=== PATIENT | male | born 1945 | race Two or more races ===

== ENCOUNTER 2023-09-11 19:48 | Inpatient (IN) | payer OTHER, MEDICAID ==
[~2023-09-11] VITALS: Ht 167.6 cm; Wt 63.0 kg
[2023-09-11 20:25] VITALS: PULSE 83; RESP 18; O2SAT 98
[2023-09-11 20:35] LABS: Basophils # (auto) 0.1 10 ^3/uL (0-0.2); Basophils % (auto) 0.6 % (0.0-2.0); Eosinophils # (auto) 0.2 10 ^3/uL (0-0.8); Eosinophils % (auto) 2.7 % (0.0-7.0); Hematocrit 46.9 % (41.0-53.0); Hemoglobin 16.1 g/dL (13.5-17.5); Lymphocytes % (auto) 12.2 % (10.0-50.0); Mean Corpuscular Hemoglobin 32.6 pg (28.0-32.0); Mean Corpuscular Hgb Conc. 34.3 g/dL (32.0-36.0); Mean Corpuscular Volume 95.1 fL (80.0-100.0); Monocytes % (auto) 12.6 % (0.0-12.0); Neutrophils % (auto) 71.9 % (37.0-80.0); Nucleated Red Blood Cells % 0.1 %; Red Blood Cells 4.93 10^6/uL (4.5-5.90); Red Cell Distribution Width 15.6 % (11.8-14.3); White Blood Cell 8.3 10^3/uL (4.4-10.8)
[2023-09-11 20:40] LABS: Chloride 106 mmol/L (98-107); Sodium 137 mmol/L (136-145)
[2023-09-11 20:41] LABS: Anion Gap 6 (5-15); Calcium 9.1 mg/dL (8.5-10.1); Carbon Dioxide 25 mmol/L (20-30)
[2023-09-11 20:46] LABS: BUN/Creatinine Ratio 9.1 (10.0-20.0); Blood Urea Nitrogen 14 mg/dL (9-23); Glucose 111 mg/dL (74-106)
[2023-09-11] MEDS: ASPirin 325 MG TAB PO ONE (21:30)
[2023-09-11] MEDS: SODIUM CHLORIDE 0.9% 500 ML IV ONE (22:16)
[2023-09-12] MEDS: SODIUM CHLORIDE 0.9% 1,000 ML IV ONE (00:13)
[2023-09-12] MEDS ORDERED: DOCUSATE SOD 100 MG CAP PO PRN (01:45)
[2023-09-12] MEDS ORDERED: ACETAMINOPHEN 325 MG TAB PO PRN (01:45)
[2023-09-12] MEDS ORDERED: HYDROcodone-ACET 5/325MG TAB PO PRN (01:45)
[2023-09-12] MEDS ORDERED: ONDANSETRON HCL 4 MG/2 ML VIAL IV PRN (01:45)
[2023-09-12] MEDS ORDERED: MORPHINE SULFATE INJ 2 MG/ml SYRG IV PRN (05:15)
[2023-09-12] MEDS ORDERED: NITROGLYCERIN 0.4 MG SL TAB SL PRN (05:15)
[2023-09-12 05:59] LABS: Basophils # (auto) 0.1 10 ^3/uL (0-0.2); Eosinophils # (auto) 0.2 10 ^3/uL (0-0.8); Eosinophils % (auto) 3.3 % (0.0-7.0); Hematocrit 41.7 % (41.0-53.0); Hemoglobin 14.5 g/dL (13.5-17.5); Lymphocytes # (auto) 1.2 10 ^3/uL (0.4-5.4); Lymphocytes % (auto) 17.8 % (10.0-50.0); Mean Corpuscular Hemoglobin 32.7 pg (28.0-32.0); Mean Corpuscular Hgb Conc. 34.8 g/dL (32.0-36.0); Monocytes # (auto) 0.8 10 ^3/uL (0-1.3); Monocytes % (auto) 12.6 % (0.0-12.0); Neutrophils # (auto) 4.3 10 ^3/uL (1.6-8.6); Neutrophils % (auto) 65.3 % (37.0-80.0); Nucleated Red Blood Cells % 0.1 %; Red Blood Cells 4.44 10^6/uL (4.5-5.90); Red Cell Distribution Width 15.3 % (11.8-14.3); White Blood Cell 6.6 10^3/uL (4.4-10.8)
[2023-09-12] MEDS: SODIUM CHLOR 0.9% PF (SALINE LOCK) 10ML VIAL/SYR IV SCH (06:04)
[2023-09-12 06:15] LABS: Alanine Aminotransferase 57 U/L (7-40); Albumin 2.9 g/dL (3.2-4.8); Alkaline Phosphatase 178 U/L (46-116); Anion Gap 7 (5-15); Aspartate Aminotransferase 68 U/L (13-40); BUN/Creatinine Ratio 14.9 (10.0-20.0); Blood Urea Nitrogen 15 mg/dL (9-23); Calcium 8.6 mg/dL (8.5-10.1); Carbon Dioxide 23 mmol/L (20-30); Chloride 110 mmol/L (98-107); Glucose 99 mg/dL (74-106); Potassium 3.9 mmol/L (3.5-5.1); Sodium 140 mmol/L (136-145); Total Protein 6.1 g/dL (5.7-8.2)
[2023-09-12 07:25] VITALS: PULSE 88; RESP 18; O2SAT 97
[2023-09-12] MEDS: CARVEDILOL 3.125 MG TAB PO SCH (10:00)
[2023-09-12] MEDS: FUROSEMIDE 20 MG/2 ML VIAL IV SCH (10:00)
[2023-09-12] MEDS: ASPirin 81 mg TAB PO SCH (10:16)
[2023-09-12] MEDS: FAMOTIDINE (10MG/ML) 2ML VL IV SCH (10:16)
[2023-09-12 12:05] LABS: Urine Bacteria None Seen /hpf (None Seen)
[2023-09-12 12:11] LABS: Triglycerides 101 mg/dL (< 150)
[2023-09-12 12:12] LABS: LDL Cholesterol 66 mg/dL (< 100)
[2023-09-12 12:13] LABS: Cholesterol 106 mg/dL (< 200); HDL Cholesterol 21 mg/dL (40-59)
[2023-09-12 12:19] LABS: Urine Blood Negative /uL (Negative); Urine Clarity Clear (Clear); Urine Color Yellow (Yellow); Urine Hyaline Cast FEW /lpf (0 - 2); Urine Protein, UAD Negative (Negative); Urine Specific Gravity 1.015 (1.001-1.035); Urine Urobilinogen 4 mg/dL (Negative); Urine WBC 2 /hpf (0 - 3); Urine pH 5.5 (5.0-9.0)
[2023-09-12] MEDS: FUROSEMIDE 20 MG TAB PO ONE (12:44)
[2023-09-12 20:00] VITALS: PULSE 97; RESP 17; O2SAT 95
[2023-09-12] MEDS: ATORVASTATIN 20 MG TAB PO SCH (22:34)
[2023-09-13 06:11] LABS: Basophils # (auto) 0.1 10 ^3/uL (0-0.2); Basophils % (auto) 1.1 % (0.0-2.0); Eosinophils # (auto) 0.3 10 ^3/uL (0-0.8); Hemoglobin 15.4 g/dL (13.5-17.5); Lymphocytes % (auto) 15.4 % (10.0-50.0); Mean Corpuscular Hemoglobin 32.8 pg (28.0-32.0); Mean Corpuscular Volume 93.7 fL (80.0-100.0); Monocytes # (auto) 0.9 10 ^3/uL (0-1.3); Monocytes % (auto) 13.7 % (0.0-12.0); Neutrophils # (auto) 4.3 10 ^3/uL (1.6-8.6); Neutrophils % (auto) 64.8 % (37.0-80.0); Nucleated Red Blood Cells % 0.1 %; Red Cell Distribution Width 15.4 % (11.8-14.3); White Blood Cell 6.6 10^3/uL (4.4-10.8)
[2023-09-13 06:35] LABS: Alanine Aminotransferase 57 U/L (7-40); Albumin 3.1 g/dL (3.2-4.8); Alkaline Phosphatase 176 U/L (46-116); Anion Gap 6 (5-15); Aspartate Aminotransferase 78 U/L (13-40); BUN/Creatinine Ratio 15.7 (10.0-20.0); Blood Urea Nitrogen 14 mg/dL (9-23); Carbon Dioxide 24 mmol/L (20-30); Chloride 108 mmol/L (98-107); Glucose 96 mg/dL (74-106); Potassium 3.9 mmol/L (3.5-5.1); Sodium 138 mmol/L (136-145)
[2023-09-13 06:36] LABS: Bilirubin, Total 1.3 mg/dL (0.2-1.0); Total Protein 6.6 g/dL (5.7-8.2)
[2023-09-13 07:54] VITALS: PULSE 89; RESP 20; O2SAT 95
[2023-09-13] MEDS: SPIRONOLACTONE 25 MG TAB PO SCH (10:00)
[2023-09-13] MEDS: EMPAGLIFLOZIN 10 MG TAB PO SCH (10:00)
[2023-09-13] MEDS: FUROSEMIDE 20 MG TAB PO SCH (10:00)
[2023-09-13 10:57] VITALS: BP 110/69; PULSE 86; RESP 18; TEMP 97.7; O2SAT 96
[2023-09-13 11:23] LABS: Folate (Folic Acid) 15.93 ng/mL (>5.38)
[2023-09-13] MEDS ORDERED: METO-289 PO (15:56)
[2023-09-13] MEDS ORDERED: ATOR10TA PO (15:56)
[2023-09-13] MEDS ORDERED: LISI-275 PO (15:56)
[2023-09-13] MEDS ORDERED: ERGO1CAP12 PO (15:56)
[2023-09-13] MEDS ORDERED: BUME0.5T4 PO (15:56)
[2023-09-13] MEDS ORDERED: RIV20T PO (15:56)
[2023-09-13] MEDS ORDERED: SPIR25TA8 PO (15:56)
[2023-09-13] MEDS ORDERED: SACU1TAB7 PO (15:56)
== END 2023-09-13 11:12 | disposition short-term general hospital (02) | DRG 280 ==
LOC: EDBD 19:48 → EDSEX 19:48 → ER 19:48 → TELE 09-12 05:06
PROVIDERS: ADMIT Internal Medicine; ATTEND Emergency Medicine
DX: I11.0 Hypertensive heart disease with heart failure (principal); I50.41 Acute combined systolic (congestive) and diastolic (congestive) heart failure; I21.A1 Myocardial infarction type 2; N17.0 Acute kidney failure with tubular necrosis; I95.9 Hypotension, unspecified; R00.0 Tachycardia, unspecified; I49.9 Cardiac arrhythmia, unspecified; M10.9 Gout, unspecified; E11.9 Type 2 diabetes mellitus without complications; Z86.73 Personal history of transient ischemic attack (TIA), and cerebral infarction without residual deficits; Z88.0 Allergy status to penicillin; Z79.899 Other long term (current) drug therapy
CPT/HCPCS: 36415; 70450; 71045; 80048; 80053; 80061; 81001; 82306; 82607; 82746; 83036; 83880; 84439; 84443; 84484; 85025; 93005; 93306; 93886; 96360; 96361; 99291; G0378; J3490

== ENCOUNTER 2023-10-04 16:59 | Inpatient (IN) | payer OTHER, MEDICAID ==
[~2023-10-04] VITALS: Ht 167.6 cm; Wt 59.0 kg
[~2023-10-04 16:59] MED LIST: ATOR10TA PO; BUME0.5T4 PO; ERGO1CAP12 PO; LISI-275 PO; METO-289 PO; RIV20T PO; SACU1TAB7 PO; SPIR25TA8 PO
[2023-10-04] MEDS: SODIUM CHLORIDE 0.9% 500 ML IV ONE (18:36)
[2023-10-04 19:30] VITALS: PULSE 65; RESP 12; O2SAT 97
[2023-10-04 19:30] LABS: Basophils # (auto) 0.1 10 ^3/uL (0-0.2); Basophils % (auto) 0.9 % (0.0-2.0); Eosinophils # (auto) 0.2 10 ^3/uL (0-0.8); Eosinophils % (auto) 3.4 % (0.0-7.0); Hematocrit 50.7 % (41.0-53.0); Hemoglobin 17.2 g/dL (13.5-17.5); Lymphocytes # (auto) 1.5 10 ^3/uL (0.4-5.4); Lymphocytes % (auto) 21.1 % (10.0-50.0); Mean Corpuscular Hemoglobin 32.1 pg (28.0-32.0); Mean Corpuscular Hgb Conc. 33.8 g/dL (32.0-36.0); Mean Corpuscular Volume 95.1 fL (80.0-100.0); Monocytes % (auto) 14.4 % (0.0-12.0); Neutrophils # (auto) 4.2 10 ^3/uL (1.6-8.6); Neutrophils % (auto) 60.2 % (37.0-80.0); Nucleated Red Blood Cells % 0.2 %; Red Blood Cells 5.34 10^6/uL (4.5-5.90); Red Cell Distribution Width 14.6 % (11.8-14.3); White Blood Cell 6.9 10^3/uL (4.4-10.8)
[2023-10-04 19:38] LABS: Chloride 105 mmol/L (98-107); Potassium 4.8 mmol/L (3.5-5.1); Sodium 134 mmol/L (136-145)
[2023-10-04 19:39] LABS: Anion Gap 11 (5-15); Calcium 9.7 mg/dL (8.7-10.4); Carbon Dioxide 18 mmol/L (20-30)
[2023-10-04 19:44] LABS: BUN/Creatinine Ratio 12.7 (10.0-20.0); Blood Urea Nitrogen 27 mg/dL (9-23); Glucose 99 mg/dL (74-106)
[2023-10-04 19:45] LABS: Magnesium 1.9 mg/dL (1.6-2.6)
[2023-10-04 20:48] LABS: Urine Bacteria None Seen /hpf (None Seen)
[2023-10-04 20:56] LABS: Urine Blood Negative /uL (Negative); Urine Clarity Clear (Clear); Urine Color Yellow (Yellow); Urine Hyaline Cast MANY /lpf (0 - 2); Urine Protein, UAD Negative (Negative); Urine Specific Gravity 1.009 (1.001-1.035); Urine Urobilinogen Normal (Negative); Urine WBC 1 /hpf (0 - 3)
[2023-10-04] MEDS ORDERED: MORPHINE SULFATE INJ 2 MG/ml SYRG IV PRN (21:15)
[2023-10-04] MEDS ORDERED: ONDANSETRON HCL 4 MG/2 ML VIAL IV PRN (21:15)
[2023-10-04] MEDS ORDERED: NITROGLYCERIN 0.4 MG SL TAB SL PRN (21:15)
[2023-10-04] MEDS ORDERED: ACETAMINOPHEN 325 MG TAB PO PRN (21:15)
[2023-10-04] MEDS: ATORVASTATIN 20 MG TAB PO SCH (21:53)
[2023-10-04] MEDS: MIDODRINE HCL 10 MG TAB PO SCH (21:53)
[2023-10-04 22:48] VITALS: BP 90/58; PULSE 62; RESP 16; TEMP 97.9; O2SAT 99
[2023-10-05] VITALS (10 sets, daily range): BP systolic 75–96; BP diastolic 45–69; PULSE 61–74; RESP 16–20; TEMP 97.4–98.1; O2SAT 95–98
[2023-10-05] MEDS: BUMETANIDE 1 MG TAB PO SCH (05:49)
[2023-10-05 07:08] LABS: Chloride 106 mmol/L (98-107); Potassium 4.2 mmol/L (3.5-5.1); Sodium 138 mmol/L (136-145)
[2023-10-05 07:09] LABS: Anion Gap 14 (5-15); Calcium 9.3 mg/dL (8.7-10.4); Carbon Dioxide 18 mmol/L (20-30)
[2023-10-05 07:14] LABS: BUN/Creatinine Ratio 21.1 (10.0-20.0); Blood Urea Nitrogen 31 mg/dL (9-23); Glucose 80 mg/dL (74-106)
[2023-10-05 07:42] LABS: Basophils # (auto) 0.1 10 ^3/uL (0-0.2); Eosinophils # (auto) 0.3 10 ^3/uL (0-0.8); Eosinophils % (auto) 5.1 % (0.0-7.0); Hematocrit 46.5 % (41.0-53.0); Hemoglobin 16.1 g/dL (13.5-17.5); Lymphocytes # (auto) 1.8 10 ^3/uL (0.4-5.4); Lymphocytes % (auto) 30.6 % (10.0-50.0); Mean Corpuscular Hemoglobin 32.6 pg (28.0-32.0); Mean Corpuscular Hgb Conc. 34.6 g/dL (32.0-36.0); Mean Corpuscular Volume 94.4 fL (80.0-100.0); Monocytes # (auto) 0.7 10 ^3/uL (0-1.3); Monocytes % (auto) 12.9 % (0.0-12.0); Neutrophils # (auto) 2.9 10 ^3/uL (1.6-8.6); Neutrophils % (auto) 50.4 % (37.0-80.0); Nucleated Red Blood Cells % 0.5 %; Red Blood Cells 4.92 10^6/uL (4.5-5.90); Red Cell Distribution Width 14.4 % (11.8-14.3); White Blood Cell 5.7 10^3/uL (4.4-10.8)
[2023-10-05] MEDS: SPIRONOLACTONE 25 MG TAB PO SCH (09:52)
[2023-10-05 12:55] LABS: Magnesium 1.6 mg/dL (1.6-2.6)
[2023-10-05 12:57] LABS: Phosphorus 4.2 mg/dL (2.4-5.1)
[2023-10-05 13:57] LABS: Amphetamine Screen, Urine Neg (NEGATIVE); Barbiturate Scree,Urine Neg (NEGATIVE); Benzodiazephine Screen, Urine Neg (NEGATIVE); Cocaine Screen, Urine Neg (NEGATIVE)
[2023-10-05 13:58] LABS: Cannabinoid Screen, Urine Neg (NEGATIVE); Opiate Scree,Urine Neg (NEGATIVE); Phencyclidine Screen, Urine Neg (NEGATIVE)
[2023-10-05] MEDS: CYANOCOBALAMIN 500 MCG TAB PO ONE (14:06)
[2023-10-05] MEDS: ERGOCALCIFEROL 50,000 UNIT(1.25MG) CAP PO SCH (14:06)
[2023-10-05 15:17] LABS: INR 1.3 (0.9-1.15); Partial Thromboplastin Time 30.7 SEC (24.5-34.5); Prothrombin Time 13.5 sec (9.3-11.8)
[2023-10-05] MEDS: RIVAROXABAN 20 MG TAB PO SCH (17:21)
[2023-10-06] VITALS (9 sets, daily range): BP systolic 68–139; BP diastolic 51–85; PULSE 64–84; RESP 18–20; TEMP 97.5–98.8; O2SAT 91–98
[2023-10-06 05:50] LABS: Basophils # (auto) 0 10 ^3/uL (0-0.2); Basophils % (auto) 0.7 % (0.0-2.0); Eosinophils # (auto) 0.3 10 ^3/uL (0-0.8); Eosinophils % (auto) 5.3 % (0.0-7.0); Hematocrit 46.5 % (41.0-53.0); Hemoglobin 16.2 g/dL (13.5-17.5); Lymphocytes # (auto) 1.6 10 ^3/uL (0.4-5.4); Lymphocytes % (auto) 29.5 % (10.0-50.0); Mean Corpuscular Hemoglobin 32.8 pg (28.0-32.0); Mean Corpuscular Hgb Conc. 34.8 g/dL (32.0-36.0); Mean Corpuscular Volume 94.2 fL (80.0-100.0); Monocytes # (auto) 0.6 10 ^3/uL (0-1.3); Neutrophils # (auto) 2.8 10 ^3/uL (1.6-8.6); Neutrophils % (auto) 52.5 % (37.0-80.0); Nucleated Red Blood Cells % 0.1 %; Red Blood Cells 4.94 10^6/uL (4.5-5.90); Red Cell Distribution Width 14.4 % (11.8-14.3); White Blood Cell 5.3 10^3/uL (4.4-10.8)
[2023-10-06 05:59] LABS: Alanine Aminotransferase 57 U/L (7-40); Alkaline Phosphatase 181 U/L (46-116); Anion Gap 8 (5-15); BUN/Creatinine Ratio 24.8 (10.0-20.0); Blood Urea Nitrogen 27 mg/dL (9-23); Calcium 9.5 mg/dL (8.7-10.4); Carbon Dioxide 23 mmol/L (20-30); Chloride 106 mmol/L (98-107); Glucose 93 mg/dL (74-106); Sodium 137 mmol/L (136-145)
[2023-10-06 06:00] LABS: Albumin 3.3 g/dL (3.2-4.8); Aspartate Aminotransferase 71 U/L (13-40); Bilirubin, Total 1.3 mg/dL (0.2-1.0); Total Protein 6.9 g/dL (5.7-8.2)
[2023-10-06] MEDS: CYANOCOBALAMIN 500 MCG TAB PO SCH (09:19)
[2023-10-06] MEDS: SODIUM CHLORIDE 0.9% 250 ML IV ONE (11:30)
[2023-10-07] VITALS (9 sets, daily range): BP systolic 90–127; BP diastolic 58–80; PULSE 68–81; RESP 17–20; TEMP 97.4–98.3; O2SAT 96–99
[2023-10-07 08:55] LABS: Basophils # (auto) 0.1 10 ^3/uL (0-0.2); Basophils % (auto) 1.1 % (0.0-2.0); Eosinophils # (auto) 0.3 10 ^3/uL (0-0.8); Eosinophils % (auto) 5.4 % (0.0-7.0); Hemoglobin 16.6 g/dL (13.5-17.5); Lymphocytes # (auto) 1.3 10 ^3/uL (0.4-5.4); Lymphocytes % (auto) 27.4 % (10.0-50.0); Mean Corpuscular Hemoglobin 32.6 pg (28.0-32.0); Mean Corpuscular Hgb Conc. 34.6 g/dL (32.0-36.0); Mean Corpuscular Volume 94.4 fL (80.0-100.0); Monocytes # (auto) 0.5 10 ^3/uL (0-1.3); Neutrophils # (auto) 2.7 10 ^3/uL (1.6-8.6); Neutrophils % (auto) 55.1 % (37.0-80.0); Nucleated Red Blood Cells % 0.2 %; Red Blood Cells 5.08 10^6/uL (4.5-5.90); Red Cell Distribution Width 14.3 % (11.8-14.3); White Blood Cell 4.9 10^3/uL (4.4-10.8)
[2023-10-07 09:27] LABS: Alanine Aminotransferase 61 U/L (7-40); Albumin 3.5 g/dL (3.2-4.8); Alkaline Phosphatase 204 U/L (46-116); Anion Gap 7 (5-15); Aspartate Aminotransferase 78 U/L (13-40); BUN/Creatinine Ratio 21.1 (10.0-20.0); Blood Urea Nitrogen 19 mg/dL (9-23); Carbon Dioxide 23 mmol/L (20-30); Chloride 107 mmol/L (98-107); Glucose 130 mg/dL (74-106); Potassium 4.1 mmol/L (3.5-5.1); Sodium 137 mmol/L (136-145)
[2023-10-07 09:28] LABS: Bilirubin, Total 1.4 mg/dL (0.2-1.0); Total Protein 7.1 g/dL (5.7-8.2)
[2023-10-07 09:29] LABS: Hepatitis A Ab IgM Negative
[2023-10-07 09:31] LABS: Hepatitis B Core IgM Negative
[2023-10-07 10:19] LABS: Calcium 9.4 mg/dL (8.5-10.1)
[2023-10-07 11:39] LABS: Hepatitis B Surface Antigen Negative (Negative); Hepatitis C Antibody Reactive (Negative)
== END 2023-10-07 22:50 | disposition short-term general hospital (02) | DRG 312 ==
LOC: EDBD 16:59 → ER 16:59 → TELE 21:09 → TELE-WESTW 22:37
PROVIDERS: ADMIT Internal Medicine; ATTEND Emergency Medicine
DX: I95.1 Orthostatic hypotension (principal); N17.0 Acute kidney failure with tubular necrosis; I50.22 Chronic systolic (congestive) heart failure; I42.8 Other cardiomyopathies; E86.0 Dehydration; D69.6 Thrombocytopenia, unspecified; M10.9 Gout, unspecified; I27.20 Pulmonary hypertension, unspecified; E11.9 Type 2 diabetes mellitus without complications; E78.5 Hyperlipidemia, unspecified; I11.0 Hypertensive heart disease with heart failure; R74.01 Elevation of levels of liver transaminase levels; Z88.8 Allergy status to other drugs, medicaments and biological substances; Z88.0 Allergy status to penicillin; Z91.013 Allergy to seafood; Z79.899 Other long term (current) drug therapy; Z86.73 Personal history of transient ischemic attack (TIA), and cerebral infarction without residual deficits; Z82.49 Family history of ischemic heart disease and other diseases of the circulatory system; Z95.810 Presence of automatic (implantable) cardiac defibrillator
CPT/HCPCS: 36415; 71045; 80048; 80053; 80061; 80074; 80307; 81001; 82306; 82607; 83735; 83880; 84100; 84443; 84484; 85025; 85610; 85730; 87081; 93005; 96360; 97163; 99291; G0378